=== PATIENT | female | born 1990 | race Caucasian/White ===

== ENCOUNTER 2025-08-29 07:38 | Outpatient (CLI) | payer OTHER, SELFPAY | END 2025-08-29 07:39 | disposition home or self-care (01) | LOC: ULT 07:38 | PROVIDERS: ATTEND Nurse Practitioner Family | DX: R14.0 Abdominal distension (gaseous) (principal); K58.0 Irritable bowel syndrome with diarrhea; R16.0 Hepatomegaly, not elsewhere classified | CPT/HCPCS: 76700 ==